=== PATIENT | female | born 1955 | race Caucasian/White ===

== ENCOUNTER 2019-04-06 16:36 | Emergency (ER) | payer OTHER ==
[~2019-04-06] VITALS: Ht 162.6 cm; Wt 70.3 kg
[2019-04-06] MEDS ORDERED: ENALAPRIL MALEA10 MG (17:16)
[2019-04-06] MEDS ORDERED: SYNTHROID50 MCG (17:16)
== END 2019-04-06 20:31 | disposition home or self-care (01) ==
LOC: ER 16:36
DX: G89.29 Other chronic pain (principal); M25.562 Pain in left knee; R60.0 Localized edema

== ENCOUNTER 2019-05-22 14:37 | Outpatient (CLI) | payer OTHER ==
[~2019-05-22 14:37] MED LIST: ENALAPRIL MALEA10 MG; SYNTHROID50 MCG
[2019-05-23] MEDS ORDERED: CELEBREX200MG PO (14:20)
== END 2019-05-22 14:41 | disposition home or self-care (01) ==
LOC: MRI 14:37
DX: M25.862 Other specified joint disorders, left knee (principal); M17.12 Unilateral primary osteoarthritis, left knee
CPT/HCPCS: 73721